=== PATIENT | male | born 1985 | race Caucasian/White ===

== ENCOUNTER → 2024-09-09 | Day surgery (SDC) | payer OTHER ==
[~2024-09-09] MED LIST: AMOXICILLIN 8751 TAB PO
[2024-09-09 15:36] LABS: SYNOVIAL FL. MONONUCLEAR 12.1 % (0-75); SYNOVIAL FLUID RBC 50000 /mm3 (0-0); SYNOVIAL FLUID WBC 22673 /mm3 (200-600)
[2024-09-09 15:47] LABS: SYNOVIAL FLUID APPEARANCE BLOODY; SYNOVIAL FLUID COLOR RED
== END ==
LOC: ZCOL.LAB 15:14
PROVIDERS: Orthopaedic Surgery
DX: M25.469 Effusion, unspecified knee (principal)